=== PATIENT | male | born 1985 | race American Indian/Alaskan Native ===

== ENCOUNTER 2017-04-30 07:44 | Day surgery (SDC) | payer OTHER ==
[~2017-04-30 07:44] MED LIST: ANCEF/STERILE WATER 2 GM/20 ML 2 GM/20 ML SYRINGE IV NR
[2017-04-30] MEDS ORDERED: XYLOCAINE 1% 20 mL ONE (08:21)
[2017-04-30] MEDS ORDERED: MARCAINE 0.25% INFILTRATI ONE ×2 (08:21→11:25)
[2017-04-30] MEDS ORDERED: ZOFRAN IV PRN (10:01)
--- NOTE | 2017-04-30 10:12 | Anesthesia Consultation ---
Anesthesia Consult and Med Hx Date of service: 04/30/17 - Airway Anesthetic Teeth Evaluation: Good ROM Head & Neck: Adequate Mental/Hyoid Distance: Adequate Mallampati Class: Class III Intubation Access Assessment: Probably Good - Pulmonary Exam CTA: Yes - Cardiac Exam Cardiac Exam: RRR - Pre-Operative Health Status ASA Pre-Surgery Classification: ASA2, ASA3 - Pulmonary Hx Smoking: Yes (1-2 CIGARS PER MONTH) Hx Sleep Apnea: No (FELIX PRE SCREEN HIGH RISK.) - Cardiovascular System Hx Hypertension: No Hx Heart Murmur: ( CHILD- NO PROBLEMS NOW) - Other Systems Hx Cancer: No
--- NOTE | 2017-04-30 10:12 | Anesthesia Day of Surgery ---
Anesthesia Day of Surgery - Day of Surgery Patient Examined: Yes Patient H&P Reviewed: Yes Patient is NPO: Yes
[2017-04-30] MEDS ORDERED: SUBLIMAZE ONE (10:34)
[2017-04-30] MEDS ORDERED: XYLOCAINE MPF 2% ONE (10:34)
[2017-04-30] MEDS ORDERED: DIPRIVAN 10 MG/ML IV ONE ×2 (10:35→11:23)
[2017-04-30] MEDS ORDERED: ZOFRAN ONE (10:36)
[2017-04-30] MEDS ORDERED: NACL 0.9% 1000 ML 1,000 ML IV SCH (11:00)
[2017-04-30] MEDS ORDERED: XYLOCAINE 1% 20 mL INFILTRATI ONE (11:25)
[2017-04-30] MEDS ORDERED: ADRENALIN IV ONE (11:38)
--- NOTE | 2017-04-30 12:34 | Short Stay Summary ---
Short Stay Documentation Date of service: 04/30/17 - History H&P: obtained from office - Allergies and Medications Current Medications: Allergies No Known Allergies Allergy (Verified 04/26/17 13:07) Home Medications Medication Instructions Recorded Confirmed Last Taken Type HYDROcodone/APAP 5-325 [[place] 5 mg PO Q4-6H PRN 04/30/17 04/30/17 2 Weeks Ago History 5-325 mg TAB] ~04/16/17 Ibuprofen [Ibuprofen] 800 mg PO Q4-6H PRN 04/30/17 04/30/17 6 Days Ago History ~04/24/17 Active Medications Hydromorphone HCl (Dilaudid) 0.5 mg IV Q10MIN PRN PRN Reason: Pain , Severe (7-10) Stop: 04/30/17 13:00 Cefazolin Sodium (Ancef/Sterile Water 2 Gm/20 Ml) 2 gm in 20 mls @ 80 mls/hr IV PREOP NR PRN Reason: Protocol Stop: 04/30/17 23:59 Sodium Chloride (Nacl 0.9% 1000 Ml) 1,000 mls @ 42 mls/hr IV DIRECT IVIS Last Admin: 04/30/17 10:40 Dose: 42 mls/hr - Brief post op/procedure progress note Date of procedure: 04/30/17 Pre-op diagnosis: persistent left knee pain with mechanical symptoms, medial and lateral meni Post-op diagnosis: other (persistent left knee pain with mechanical symptoms large complex tears of both medial and lateral menisci,) Procedure: left knee arthroscopy, partial medial and lateral meniscectomies Anesthesia: GETA Findings: as above Surgeon: MAKSIM KUMARI Estimated blood loss: minimal Pathology: none Condition: stable - Hospital course Hospital course: no perioperative complications - Disposition Condition at discharge: Good Disposition: DC-01 TO HOME OR SELFCARE Short Stay Discharge Plan Follow up with: ELOY URIOSTEGUI MD [Primary Care Provider] - 7 Days
[2017-04-30] MEDS: DILAUDID IV PRN ×3 (12:55→13:15)
[2017-04-30] MEDS ORDERED: DILAUDID ONE (13:07)
[2017-04-30] MEDS ORDERED: PERCOCET 5/325 PO SCH (13:47)
--- NOTE | 2017-04-30 14:41 | Operative Report ---
PREOPERATIVE DIAGNOSES: Persistent left knee pain with mechanical symptoms, medial and lateral meniscus tears. POSTOPERATIVE DIAGNOSES: Persistent left knee pain, mechanical symptoms, large complex tear located within the posterior horn of the medial meniscus, large complex tear located within the posterior horn of the lateral meniscus, grade 1 articular cartilage loss of the central aspect of the patella and trochlea. OPERATIVE PROCEDURE: Left knee arthroscopy, partial medial and lateral meniscectomies. SURGEON: Rafal Eisenberg MD ROUTE PROCESS ADMINISTRATOR: None. ANESTHESIA: General. PREOPERATIVE ANTIBIOTICS: Ancef 2 grams IV within 1 hour of skin incision. DVT PROPHYLAXIS: SCD pumps to the nonoperative right lower extremity. OPERATIVE COMPLICATIONS: None. PREOPERATIVE HISTORY AND PHYSICAL: This is a 31-year-old male, who has had persistent and progressive worsening left knee pain with mechanical symptoms. The pain limits his day-to-day activities and has failed to improve despite extensive nonoperative treatment. MRI scan was performed and was positive for a large tear located within the posterior horn of the medial meniscus, also tear located within the posterior lateral meniscus, and a joint effusion. The patient's MRI findings and diagnosis were discussed at length to make sure the patient understood the diagnoses and all of his questions were answered. We discussed treatment alternatives of surgical and nonsurgical including risks and benefits of both. After a long and lengthy discussion, the patient opted to proceed with operative intervention. This will entail a left knee arthroscopy, partial medial and lateral meniscectomies, and surgery as indicated risks of which were discussed including, but not exclusive of infection, blood loss, nerve damage, loss of range of motion, and persistent pain. Again, the patient understood, all of his questions were answered, and he wished to proceed with the operative intervention. DESCRIPTION OF PROCEDURE: The patient was seen in preoperative holding area, at which point informed consent was reviewed and appropriate left lower extremity was identified and then marked. The patient was then brought back to the operating room and placed supine on a standard operating room table, at which point general anesthesia was administered and an LMA tube was inserted. After confirmation of adequate general anesthesia and checking appropriate placement of the LMA tube, we then made sure that all bony prominences were well padded. There was no wrinkles in the compression stocking on the right lower extremity. SCD was applied to the right lower extremity. The arm was secured in neutral position on the patient's side with the aide of arm boards. The head was secured in a neutral position as well. The left lower extremity was then examined under anesthesia. The patient was seen to have full range of motion. There was no evidence of instability with a negative Hillary, negative anterior drawer, negative posterior drawer. No varus or valgus instability at 0 as well as at 30 degrees of flexion. No recurvatum or excessive external rotation. Following examination under anesthesia, left lower extremity was then prepped and draped in the usual sterile fashion. Prepping and draping, a time-out was called. Appropriate left lower extremity was identified, which again had been marked in preoperative holding room. I began the procedure by first making a standard anterior, infiltrating the knee with 30 mL of 0.25% Marcaine with epinephrine and 30 mL of 1% lidocaine without epinephrine which the patient tolerated well. There were no complications. Following this and proceeded by making a standard anterolateral portal with a #15 blade, once the port was established, a cannula with a blunt trocar was inserted at intraarticular aspect of the joint. This was performed without difficulty or damage to the articular cartilage. Once in place, the arthroscopic camera was placed at anterior medial compartment establishing anteromedial portal by first using 18 gauge spinal needle under direct arthroscopic visualization. Once confirmed to be superior to the meniscus, a #15 blade was then used to establish anteromedial portal. Once the portal was established, blunt trocar was inserted to widen the portal site followed by an arthroscopic probe. We began our diagnostic arthroscopy in the medial compartment where the patient had a large complex tear located within the posterior horn of the medial meniscus. There is a mild, grade 1 articular cartilage loss in the medial femoral condyle and medial tibial plateau. The meniscus tear was irreparable and we performed a partial medial meniscectomy in standard fashion using series of basket punches and the 4.0 shaver into a nice, smooth, stable healthy remaining border. Inspection of the anterior horn and medial meniscus showed to be intact and stable when probed, all in all removed the white-white as well as portion of white-red and red-red zone of the posterior horn of the medial meniscus. Inspection of the notch showed to be a small, partial tear located at the origin of the anterior cruciate ligament. This was gently debrided using 4.0 meniscal shaver. The PCL was seen to be intact and stable. When probed, the remaining fibrinous ACL was seen to be intact and stable with appropriately negative Hillary, negative anterior drawer. Inspection of lateral compartment was carried out by placing in a [id number] position. Once in that position, the patient seemed to have a large complex tear located within the posterior horn of the lateral meniscus. This was irreparable and we performed a partial lateral meniscectomy in standard fashion using a series of basket punches and 4.0 meniscal shaver getting down to nice, smooth, stable, healthy remaining border. The anterior horn of the lateral meniscus was intact and stable when probed. There was a normal articular cartilage of the lateral femoral condyle and lateral tibial plateau. The popliteus was seen to be intact and stable when probed. Inspection of medial and lateral gutters showed to be small amounts of small cartilaginous loose bodies which were removed using arthroscopic shaver. Inspection of patellofemoral joint showed to be grade 1 articular cartilage in the central aspect of patella and trochlea. We then performed patellofemoral tracking except the suprapatellar pouch showed to be no loose bodies present. Arthroscopic camera was then placed in the in the posterior aspect of the knee adjacent to cruciate ligament and femoral condyle. Once in the posterior aspect of the knee, we saw there were no root tears present, there were no loose bodies present. The arthroscopic camera was then removed from the posterior aspect of the knee and the arthroscopic pump was turned off to make sure there was good hemostasis. Once this was confirmed, the extraneous fluid was suctioned from the knee using arthroscopic cannula. Following this, all the arthroscopic instrumentation was removed. The 2 portal sites were closed with 3-0 nylon in a simple fashion. Adaptic, 4 x 4s, ABD, sterile Webril, the Donjoy Cryo/Cuff with the Peter wrap was then applied. The patient was then awakened from general anesthesia without complication and sent to the recovery room in stable condition. Standard postoperative orders were written. JOB# [id number] KAYLAH/FRANSISCO
[2017-04-30 15:17] VITALS: BP 130/77
--- NOTE | 2017-04-30 22:18 | Post Anesthesia Evaluation ---
- Post Anesthesia Evaluation Patient Participated: Yes Airway Patent: Yes Stable Respiratory Function: Yes Nausea/Vomiting: No Temp > 96.8F: Yes Pain Manageable: Yes Adequeate Hydration: Yes Anesthesia Complications: No
== END 2017-04-30 14:55 | disposition home or self-care (01) ==
LOC: OR 07:44 → EDSEX 07:44 → OR 14:55
PROVIDERS: ATTEND Orthopaedic Surgery
DX: S83.232A Complex tear of medial meniscus, current injury, left knee, initial encounter (principal); S83.272A Complex tear of lateral meniscus, current injury, left knee, initial encounter; F17.210 Nicotine dependence, cigarettes, uncomplicated; M94.8X6 Other specified disorders of cartilage, lower leg; Z98.890 Other specified postprocedural states; Z79.899 Other long term (current) drug therapy; X58.XXXA Exposure to other specified factors, initial encounter; Y93.89 Activity, other specified; Y92.89 Other specified places as the place of occurrence of the external cause
CPT/HCPCS: 29880; 97161; G8978; G8979; G8980; J0171; J0690; J1170; J2405; J2704; J3010; J7030

== ENCOUNTER 2021-08-20 03:12 | Emergency (ER) | payer BC, OTHER ==
[2021-08-20] MEDS ORDERED: diphenhydrAMINE 25 MG CAP PO ONE (07:23)
[2021-08-20] MEDS ORDERED: predniSONE 20 MG TAB PO ONE (07:24)
[2021-08-20] MEDS ORDERED: FAMOTIDINE 20 MG TAB PO ONE (07:24)
[2021-08-20 07:58] VITALS: BP 161/93
--- NOTE | 2021-08-20 08:09 | Emergency Department Report ---
ED General Adult HPI - General Chief complaint: Skin Rash Stated complaint: ALLERGIC REACTION Time Seen by Provider: 08/20/21 07:23 Source: patient Mode of arrival: Ambulatory Limitations: No Limitations - History of Present Illness Initial comments: Patient 35-year-old [employer] who presents for rash to bilateral arms trunk and back. Patient states history of eczema with occasional flares. Patient does not recall irregular contact or irritant. Patient denies fevers or chills. Rash is raised rough mild erythema no weeping. There is no shortness of breath no wheezing or stridor. Symptoms are exacerbated by scratching. Symptoms are relieved by scratching. - Related Data Home Medications Medication Instructions Recorded Confirmed Last Taken HYDROcodone/APAP 5-325 [[place] 5 mg PO Q4-6H PRN 04/30/17 04/30/17 2 Weeks Ago 5-325 mg TAB] ~04/16/17 Ibuprofen 800 mg PO Q4-6H PRN 04/30/17 04/30/17 6 Days Ago ~04/24/17 Previous Rx's Medication Instructions Recorded Last Taken Type oxyCODONE /ACETAMINOPHEN [Percocet 1 tab PO Q6HR PRN #30 tablet 04/30/17 Unknown Rx 5/325] Triamcinolone Aceton 0.1% (Nf) 1 applic TP BID #1 tube 08/20/21 Unknown Rx [Kenalog (NF)] diphenhydrAMINE [Benadryl CAP] 25 mg PO Q8HR PRN #30 capsule 08/20/21 Unknown Rx predniSONE [Deltasone] 40 mg PO QDAY 5 Days #10 tab 08/20/21 Unknown Rx Allergies Allergy/AdvReac Type Severity Reaction Status Date / Time No Known Allergies Allergy Verified 04/26/17 13:07 ED Review of Systems ROS: Stated complaint: ALLERGIC REACTION Other details as noted in HPI Constitutional: denies: chills, fever Eyes: denies: eye pain, eye discharge, vision change ENT: denies: ear pain, throat pain Respiratory: denies: cough, shortness of breath, wheezing Cardiovascular: denies: chest pain, palpitations Endocrine: no symptoms reported Gastrointestinal: denies: abdominal pain, nausea, diarrhea Genitourinary: denies: urgency, dysuria Musculoskeletal: denies: back pain, joint swelling, arthralgia Skin: rash (bilat arms trunk and back) Neurological: denies: headache, weakness, paresthesias Psychiatric: denies: anxiety, depression Hematological/Lymphatic: denies: easy bleeding, easy bruising ED Past Medical Hx - Past Medical History Previous Medical History?: No Hx Hypertension: No Hx GERD: Yes (NO MEDS) Hx HIV: No - Surgical History Past Surgical History?: Yes Additional Surgical History: RIGHT HIP BULLET REMOVAL, BILATERAL MENISCUS REPAIRS - Social History Smoking Status: Light Tobacco Smoker Substance Use Type: None - Medications Home Medications: Home Medications Medication Instructions Recorded Confirmed Last Taken Type HYDROcodone/APAP 5-325 [[place] 5 mg PO Q4-6H PRN 04/30/17 04/30/17 2 Weeks Ago History 5-325 mg TAB] ~04/16/17 Ibuprofen 800 mg PO Q4-6H PRN 04/30/17 04/30/17 6 Days Ago History ~04/24/17 oxyCODONE /ACETAMINOPHEN [Percocet 1 tab PO Q6HR PRN #30 tablet 04/30/17 Unknown Rx 5/325] Triamcinolone Aceton 0.1% (Nf) 1 applic TP BID #1 tube 08/20/21 Unknown Rx [Kenalog (NF)] diphenhydrAMINE [Benadryl CAP] 25 mg PO Q8HR PRN #30 capsule 08/20/21 Unknown Rx predniSONE [Deltasone] 40 mg PO QDAY 5 Days #10 tab 08/20/21 Unknown Rx ED Physical Exam - General Limitations: No Limitations General appearance: alert, in no apparent distress - Head Head exam: Present: normocephalic, normal inspection - Eye Eye exam: Present: EOMI Pupils: Present: normal accommodation - ENT ENT exam: Present: mucous membranes moist - Neck Neck exam: Present: normal inspection, full ROM. Absent: tenderness, lymphadenopathy - Respiratory Respiratory exam: Present: normal lung sounds bilaterally. Absent: respiratory distress, wheezes, stridor - Cardiovascular Cardiovascular Exam: Present: regular rate, normal rhythm, normal heart sounds. Absent: systolic murmur, diastolic murmur, rubs, gallop - GI/Abdominal GI/Abdominal exam: Present: soft, normal bowel sounds. Absent: distended, tenderness - Rectal Rectal exam: Present: deferred - Extremities Exam Extremities exam: Present: normal inspection, full ROM, other (Rash as above) - Back Exam Back exam: Present: normal inspection, full ROM. Absent: CVA tenderness (R), CVA tenderness (L) - Neurological Exam Neurological exam: Present: alert, oriented X3, CN II-XII intact, normal gait - Expanded Neurological Exam Expanded Patient oriented to: Present: person, place, time Speech: Present: fluid speech Best Eye Response (Ian): (4) open spontaneously Best Motor Response (Neotsu): (6) obeys commands Best Verbal Response (Ian): (5) oriented Ian Total: 15 - Psychiatric Psychiatric exam: Present: normal affect, normal mood - Skin Skin exam: Present: warm, dry, intact, normal color, rash (Raised rough papular erythema no weeping. Dry) ED Course Vital Signs 08/20/21 08/20/21 03:22 07:57 Temperature 98.4 F 98.8 F Pulse Rate 92 H 86 Respiratory 18 16 Rate Blood Pressure 167/108 Blood Pressure 161/93 [Left] O2 Sat by Pulse 96 96 Oximetry ED Medical Decision Making - Medical Decision Making Is a contact dermatitis consistent with eczema we will treat for same. Is a recurrent problem for this patient. Patient DC'd home with prescriptions will follow primary care doctor in 2 to 3 days. Patient verbalized agreement understanding of same. Critical care attestation.: If time is entered above; I have spent that time in minutes in the direct care of this critically ill patient, excluding procedure time. ED Disposition Clinical Impression: Allergic dermatitis Disposition: HOME / SELF CARE / HOMELESS Is pt being admited?: No Does the pt Need Aspirin: No Condition: Stable Instructions: Eczema, Contact Dermatitis, [id number] Additional Instructions: Follow-up with your doctor in 2 to 3 days. Take medication as prescribed, return to emergency department should symptoms worsen Prescriptions: diphenhydrAMINE [Benadryl CAP] 25 mg PO Q8HR PRN #30 capsule PRN Reason: Itching predniSONE [Deltasone] 40 mg PO QDAY 5 Days #10 tab Triamcinolone Aceton 0.1% (Nf) [Kenalog (NF)] 1 applic TP BID #1 tube Referrals: KARL BOLTON MD [Staff Physician] - 3-5 Days Forms: Work/School Release Form(ED) Time of Disposition: 08:12
== END 2021-08-20 09:49 | disposition home or self-care (01) ==
LOC: ED 03:12
DX: L23.9 Allergic contact dermatitis, unspecified cause (principal); K21.9 Gastro-esophageal reflux disease without esophagitis; Z98.890 Other specified postprocedural states; F17.290 Nicotine dependence, other tobacco product, uncomplicated
CPT/HCPCS: 99282